=== PATIENT | male | born 1985 | race Caucasian/White ===

== ENCOUNTER 2021-01-18 08:30 | Emergency (ER) | payer MEDICAID ==
[~2021-01-18] VITALS: Ht 162.6 cm; Wt 106.0 kg
[2021-01-18 09:38] LABS: CLARITY URINE CLEAR (CLEAR); COLOR URINE YELLOW (YELLOW); KETONES URINE NEGATIVE (NEGATIVE); LEUKOCYTE ESTERASE URINE NEGATIVE (NEGATIVE); NITRITE URINE NEGATIVE (NEGATIVE); OCCULT BLOOD URINE NEGATIVE (NEGATIVE); PH URINE 5.5 (4.5-8.0); PROTEIN URINE NEGATIVE (NEGATIVE); SPECIFIC GRAVITY URINE 1.014 (1.005-1.030); UROBILINOGEN URINE 0.2 E.U./dL (0.2-1.0)
[2021-01-18] MEDS ORDERED: CEFTRIAXONE SODIUM 500 MG/VIAL IM ONE (10:00)
[2021-01-18] MEDS ORDERED: AZITHROMYCIN 500 MG TABLET PO NR (10:00)
[2021-01-18] MEDS ORDERED: CLOT15CR27 TP (10:28)
[2021-01-18 10:35] VITALS: BP 128/70
[2021-01-20 04:07] LABS: NEISSERIA GONORRHOEAE NAA Negative (Negative)
== END 2021-01-18 10:35 | disposition home or self-care (01) ==
LOC: ER 08:30
DX: Z20.2 Contact with and (suspected) exposure to infections with a predominantly sexual mode of transmission (principal); Z20.822 Contact with and (suspected) exposure to COVID-19; E11.9 Type 2 diabetes mellitus without complications; K21.9 Gastro-esophageal reflux disease without esophagitis; F20.9 Schizophrenia, unspecified
CPT/HCPCS: 71045; 81003; 87491; 87591; 96372; 99284; C9803; J0696; U0003; U0005; Z7610